=== PATIENT | male | born 2000 | race Caucasian/White ===

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

== ENCOUNTER 2022-05-09 17:07 | Emergency (ER) | payer OTHER, MEDICAID, SELFPAY ==
[2022-05-09 17:19] VITALS: BP 135/75; PULSE 107; RESP 20; TEMP 38.5; O2SAT 98; BMI 22.4
[2022-05-09] MEDS: IBUPROFEN 400 MG TABLET PO (17:34)
[2022-05-09] MEDS: ACETAMINOPHEN 325 MG TABLET 650 MG PO (17:35)
[2022-05-09 18:30] LABS: Influenza A - CEPHEID Flu A POSITIVE (NEGATIVE); Influenza B - CEPHEID Flu B NEGATIVE (NEGATIVE); Respiratory Syncytial Virus Negative (Negative)
[2022-05-09 18:32] LABS: COVID-19 CEPHEID 4-PLEX PCR Negative (Negative)
--- NOTE | 2022-05-09 18:52 | ED.URI ---
HPI - URI/Sore Throat <WILL Saez - Last Filed: 05/09/22 18:56> General Chief Complaint: Upper Respiratory Symptoms Stated Complaint: Thinks pneumonia Time Seen by Provider: 05/09/22 18:42 Source: patient Mode of arrival: Ambulatory History of Present Illness HPI Narrative: Using 21 male emergency department with 3 days of cough, cold, congestion, fevers and states that he has a history of asthma. He ran out of his albuterol inhaler, denies nausea, vomiting or diarrhea. Complains of shortness of breath, has been taking medicine which has been mildly helpful, received Tylenol and ibuprofen when he checked in and is feeling better already. Related Data Home Medications Medication Instructions Recorded Confirmed fluticasone propionate 110 1 puff INH BIDRT ##0 12/27/10 mcg/actuation HFA aerosol inhaler (Flovent HFA) albuterol sulfate 90 mcg/actuation 2 puff INH Q4HP ##0 08/05/12 aerosol inhaler (Ventolin HFA) loratadine 10 mg capsule (Claritin ##0 08/06/17 Liqui-Gel) Previous Rx's Medication Instructions Recorded azithromycin 250 mg tablet 0 tab PO QDAY #6 tabs 08/06/17 (Zithromax Z-Lazaro) albuterol sulfate 90 mcg/actuation 1 puff inhalation QID PRN 05/09/22 aerosol inhaler shortness of breath or wheezing #8.5 grams cetirizine 10 mg tablet 10 mg PO BEDTIME #30 tabs 05/09/22 prednisone 20 mg tablet 20 mg PO DAILY 3 days #3 tabs 05/09/22 Allergies Allergy/AdvReac Type Severity Reaction Status Date / Time No Known Drug Allergies Allergy Verified 10/18/21 11:00 Review of Systems <WILL Saez - Last Filed: 05/09/22 18:56> Review of Systems Narrative: Short ros ROS Unobtainable: All systems reviewed & are unremarkable except as noted in HPI and below Patient History <WILL Saez - Last Filed: 05/09/22 18:56> Medical History Healthy child Social History Smoking Status: Current every day smoker Smoking Status: Current every day smoker tobacco type: cigarettes alcohol intake frequency: holidays/special occasions only Substance Use Type: marijuana Exam <WILL Saez - Last Filed: 05/09/22 18:56> Narrative Exam Narrative: Reviewed vitals signs and nursing notes. General: cooperative, comfortable, in no acute distress, well groomed HEENT: symmetrical facial expressions, moist mucous membranes Cardiovascular: regular rate and rhythm, no peripheral edema, warm extremities Respiratory: normal effort, mild wheezes especially on right, without tachypnea, hypoxia, increased work of breathing but patient expresses short of breath, able to speak in complete sentences, without stridor, or abnormal breath sounds. No retractions or tachypnea. GI: abdomen soft, nontender to palpation, nondistended, without masses, rebound tenderness or exquisite tenderness with exam. MSK: moves all extremities, neurovascularly intact, no weakness, normal tone Skin: brisk capillary refill, without pallor or erythema Neuro: normal speech and cognition, A&O x3, ambulatory, clear speech Psych: mental status is grossly normal, congruent mood, normal affect, pleasant and cooperative Initial Vital Signs Initial Vital Signs: Vital Signs Temperature 101.3 F H 05/09/22 17:19 Pulse Rate 107 H 05/09/22 17:19 Respiratory Rate 20 05/09/22 17:19 Blood Pressure 135/75 05/09/22 17:19 Pulse Oximetry 98 05/09/22 17:19 Oxygen Delivery Method 05/09/22 17:19 <Dannielle Ma DO - Last Filed: 05/10/22 12:56> Initial Vital Signs Initial Vital Signs: Vital Signs Temperature 101.3 F H 05/09/22 17:19 Pulse Rate 107 H 05/09/22 17:19 Respiratory Rate 20 05/09/22 17:19 Blood Pressure 135/75 05/09/22 17:19 Pulse Oximetry 98 05/09/22 17:19 Oxygen Delivery Method 05/09/22 17:19 Course <WILL Saez - Last Filed: 05/09/22 18:56> Orders Ordered: Discontinued Medications Acetaminophen (Acetaminophen 325 Mg Tablet) 650 mg PO NOW ONE Stop: 05/09/22 17:27 Last Admin: 12/04/22 17:35 Dose: 650 mg Documented By: BT Ibuprofen (Ibuprofen 400 Mg Tablet) 400 mg PO NOW ONE Stop: 05/09/22 17:25 Last Admin: 05/09/22 17:34 Dose: 400 mg Documented By: BT Vital Signs Vital signs: Vital Signs - 8 hr 05/09/22 17:19 Temperature 101.3 F H Pulse Rate 107 H Respiratory Rate 20 Blood Pressure 135/75 Pulse Oximetry 98 Oxygen Delivery Method Room Air <Dannielle Ma DO - Last Filed: 05/10/22 12:56> Orders Ordered: Discontinued Medications Acetaminophen (Acetaminophen 325 Mg Tablet) 650 mg PO NOW ONE Stop: 05/09/22 17:27 Last Admin: 05/09/22 17:35 Dose: 650 mg Documented By: BT Ibuprofen (Ibuprofen 400 Mg Tablet) 400 mg PO NOW ONE Stop: 05/09/22 17:25 Last Admin: 05/09/22 17:34 Dose: 400 mg Documented By: BT Vital Signs Vital signs: Vital Signs - 8 hr 05/09/22 17:19 Temperature 101.3 F H Pulse Rate 107 H Respiratory Rate 20 Blood Pressure 135/75 Pulse Oximetry 98 Oxygen Delivery Method Room Air MDM - URI/Sore Throat <WILL Saez - Last Filed: 05/09/22 18:56> Lab Data Labs: Lab Results 05/09/22 Range/Units 17:32 SARS-CoV-2 (PCR) Negative (Negative) Influenza A (RT-PCR) Flu a positive H (NEGATIVE) Influenza B (RT-PCR) Flu b negative (NEGATIVE) RSV (PCR) Negative (Negative) MDM Narrative Medical decision making narrative: This is a 21-year-old male presents emergency department with 3 days of congestion, cough, fevers with history of asthma. Patient had mild expiratory wheezes greater on right than left, without tachypnea, hypoxia, and initially he was febrile but this came down prior to his departure. He has history of pneumonia in the past. He ran out of his albuterol inhaler. Patient was prescribed 3 days of prednisone, given a refill of his albuterol inhaler with refills, prescribed Zyrtec and encouraged to continue taking fluticasone morning and night to help with his symptoms. Patient is p.o. tolerant and has been staying hydrated. Patient's respiratory panel tested positive for influenza A. Recommend that he return emergency department for any worsening of his symptoms. Other possible diagnosis' considered include; viral URI, influenza, pneumonia, pharyngitis, acute bronchitis, allergic rhinitis, pertussis, sinusitis, appendicitis, dehydration. Rest, drink plenty of fluids, NSAIDS for muscle aches and pains. Return to ED for worsening symptoms such as SOB, chest pain, inability to take adequate oral fluids, fever, or productive cough. <Dannielle Ma, DO - Last Filed: 05/10/22 12:56> Lab Data Labs: Lab Results 05/09/22 Range/Units 17:32 SARS-CoV-2 (PCR) Negative (Negative) Influenza A (RT-PCR) Flu a positive H (NEGATIVE) Influenza B (RT-PCR) Flu b negative (NEGATIVE) RSV (PCR) Negative (Negative) Discharge Plan Departure Patient Disposition: Home Clinical Impression: Influenza A, History of asthma Instructions: Influenza Activity Restrictions/Additional Instructions: *You have been diagnosed with influenza a. I have refilled your albuterol inhaler and given you to refills, I gave a 3 days of prednisone as a steroid, please start taking Zyrtec 20 mg at night until your congestion improves and then you can decrease to 10 mg for as long as you still have symptoms. Use Flonase morning and night, stay hydrated, take ibuprofen and Tylenol in conjunction every 6 hours to help treat fever. I hope you feel better soon, thank you for your patience today. *What to do: *Please continue to take your regular medications as directed. [ x] New medication prescriptions sent to your pharmacy: [ [facility]] [ ] New medication written as a paper prescription [ ] No new medications given *Please follow up with your primary care provider in 2-3 days, call for an appointment. Let them know you were seen in the Emergency Department and that we asked that you be seen for follow-up. We will electronically transmit a record of today's note if your PCP is in our system *If you do not have a primary care provider please contact [phone] to establish care with one of the [facility] primary care providers. *Return to Emergency Department if you should have any new, worsening, or concerning symptoms, such as [fever greater than 101F, chills, worsening pain, persistent vomiting or other bothersome symptoms]. Prescriptions: New cetirizine 10 mg tablet 10 mg PO BEDTIME Qty: 30 0RF albuterol sulfate 90 mcg/actuation HFA aerosol inhaler 1 puff inhalation QID PRN (Reason: shortness of breath or wheezing) Qty: 8.5 2RF prednisone 20 mg tablet 20 mg PO DAILY 3 Days Qty: 3 0RF No Action fluticasone propionate [Flovent HFA] 12 GM HFA aerosol inhaler 1 puff INH BIDRT Qty: 0 albuterol sulfate [Ventolin HFA] 90 MCG/PUFF HFA aerosol inhaler 2 puff INH Q4HP Qty: 0 loratadine [Claritin Liqui-Gel] 10 MG capsule Qty: 0 azithromycin [Zithromax Z-Lazaro] 250 MG tablet 0 tab PO QDAY Qty: 6 0RF Referrals: Anderson Guerra MD [Primary Care Provider] - Visit Report Forms: Patient Portal/API <Dannielle Ma DO - Last Filed: 05/10/22 12:56> Cosign ED Attending Vietature Attestation: I was immediately available in the department for consultation. Documentation has been reviewed.
== END 2022-05-09 19:43 | disposition home or self-care (01) ==
PROVIDERS: Emergency Medicine; Emergency Provider Nurse Practitioner Critical Care Medicine; Family Provider Pediatrics; PCP Pediatrics
DX: J10.1 Influenza due to other identified influenza virus with other respiratory manifestations (principal); R50.9 Fever, unspecified; Z87.09 Personal history of other diseases of the respiratory system
CPT/HCPCS: 0241U; 99282; 99283

== ENCOUNTER 2023-05-20 21:20 | Emergency (ER) | payer OTHER, MEDICAID, SELFPAY ==
[2023-05-20 21:42] VITALS: BP 148/69; PULSE 79; RESP 16; TEMP 37.7; O2SAT 98; BMI 38.0
--- NOTE | 2023-05-20 22:51 | PC.NURSE ---
smashed left thumb, wants it drained. Left thumb has small 3mm subungual hematoma. Finger is pink and without swelling.
--- NOTE | 2023-05-20 23:23 | ED_ITS ---
HPI - Extremity Injury (Upper) General Chief Complaint: Extremity Injury, Upper Stated Complaint: smashed L thumb 2hr wants it drained Time Seen by Provider: 05/20/23 21:24 Source: patient Mode of arrival: Ambulatory History of Present Illness HPI narrative: Patient presents with thumb pain. He accidentally smashed his left thumb 2 hours ago and has a small hematoma under his left thumbnail. He is here today requesting that the blood be drained from his nail. Related Data Home Medications Medication Instructions Recorded Confirmed fluticasone propionate 110 1 puff INH BIDRT ##0 12/27/10 mcg/actuation HFA aerosol inhaler (Flovent HFA) albuterol sulfate 90 mcg/actuation 2 puff INH Q4HP ##0 08/05/12 aerosol inhaler (Ventolin HFA) loratadine 10 mg capsule (Claritin ##0 08/06/17 Liqui-Gel) Previous Rx's Medication Instructions Recorded azithromycin 250 mg tablet 0 tab PO QDAY #6 tabs 08/06/17 (Zithromax Z-Lazaro) albuterol sulfate 90 mcg/actuation 1 puff inhalation QID PRN 05/09/22 aerosol inhaler shortness of breath or wheezing #8.5 grams cetirizine 10 mg tablet 10 mg PO BEDTIME #30 tabs 05/09/22 Allergies Allergy/AdvReac Type Severity Reaction Status Date / Time No Known Drug Allergies Allergy Verified 10/18/21 11:00 Review of Systems Review of Systems Narrative: Negative except as noted above Patient History Medical History (Updated 05/20/23 @ 23:24 by Dannielle Sanchez MD) Healthy child Social History Smoking Status: Current every day smoker Smoking Status: Current every day smoker tobacco type: cigarettes alcohol intake frequency: holidays/special occasions only Substance Use Type: marijuana Exam Initial Vital Signs Initial Vital Signs: Vital Signs Temperature 99.9 F H 05/20/23 21:42 Pulse Rate 79 05/20/23 21:42 Respiratory Rate 16 05/20/23 21:42 Blood Pressure 148/69 H 05/20/23 21:42 Pulse Oximetry 98 05/20/23 21:42 Oxygen Delivery Method Room Air 05/20/23 21:42 General: Awake, alert, no acute distress, nontoxic in appearance MSK: Small subungual hematoma under left nail. No deformity to finger Procedures Nail Trephination Location (finger): left and thumb Sterile prep: other (alcohol prep) Method of drainage: nail cautery Procedure successful: Yes Patient tolerated procedure: well and no complications Course Course Course Narrative: Subungual hematoma. Trephinated. Improvement in pain after trephination. Wound care instructions discussed with patient at bedside. Vital Signs Vital signs: Vital Signs - 8 hr 05/20/23 21:42 Temperature 99.9 F H Pulse Rate 79 Respiratory Rate 16 Blood Pressure 148/69 H Pulse Oximetry 98 Oxygen Delivery Method Room Air Discharge Plan Departure Patient Disposition: Home Clinical Impression: Subungual hematoma Instructions: DI for Subungual Hematoma Prescriptions: No Action fluticasone propionate [Flovent HFA] 12 GM HFA aerosol inhaler 1 puff INH BIDRT Qty: 0 albuterol sulfate [Ventolin HFA] 90 MCG/PUFF HFA aerosol inhaler 2 puff INH Q4HP Qty: 0 loratadine [Claritin Liqui-Gel] 10 MG capsule Qty: 0 azithromycin [Zithromax Z-Lazaro] 250 MG tablet 0 tab PO QDAY Qty: 6 0RF cetirizine 10 mg tablet 10 mg PO BEDTIME Qty: 30 0RF albuterol sulfate 90 mcg/actuation HFA aerosol inhaler 1 puff inhalation QID PRN (Reason: shortness of breath or wheezing) Qty: 8.5 2RF Referrals: Anderson Guerra MD [Primary Care Provider] - Stand Alone Forms: Patient Portal/API
== END 2023-05-20 23:32 | disposition home or self-care (01) ==
PROVIDERS: Emergency Provider Emergency Medicine; Family Provider Pediatrics; PCP Pediatrics
DX: S60.112A Contusion of left thumb with damage to nail, initial encounter (principal); W23.0XXA Caught, crushed, jammed, or pinched between moving objects, initial encounter
CPT/HCPCS: 11740; 99281; 99282

== ENCOUNTER 2023-10-17 15:49 | Emergency (ER) | payer OTHER, MEDICAID, SELFPAY ==
[2023-10-17 16:15] VITALS: BP 114/72; PULSE 101; RESP 17; TEMP 37.1; O2SAT 97; BMI 25.0
--- NOTE | 2023-10-17 17:27 | DI.RAD.S_ITS ---
PROCEDURE: XR KNEE LT 3V INDICATIONS: knee laceration from chainsaw TECHNIQUE: 3 views of the knee were acquired. COMPARISON: None. FINDINGS: Bones: No fractures or dislocations. No suspicious bony lesions. Soft tissues: No joint effusion. No suspicious soft tissue calcifications. IMPRESSION: No acute osseous abnormality. Dictated by: Yash Alvarado M.D. on 10/17/2023 at 18:23 Approved by: Yash Alvarado M.D. on 10/17/2023 at 18:23
[2023-10-17] MEDS: TET,DIPH,PERTUSS(ACELL),VAC/PF 0.5 ML SYRINGE IM (17:56)
[2023-10-17] MEDS: LIDOCAINE 1% (PF) 5 ML INJ (17:56)
--- NOTE | 2023-10-18 12:08 | ED.WOUNDLAC ---
HPI - Wound/Laceration <Neel Stewart PA-C - Last Filed: 10/18/23 12:15> General Chief Complaint: Wound/Laceration Stated Complaint: Chainsaw to left lower leg Time Seen by Provider: 10/17/23 17:09 Source: patient Mode of arrival: Family Vehicle History of Present Illness HPI narrative: 23-year-old male presents to the ED status post a left knee injury sustained just prior to arrival. Patient was chopping down a tree, when his chain saw slipped and nicked his left knee. Patient applied pressure to stop the bleeding, presented to the ED for further evaluation. Patient denies numbness, tingling, weakness. Patient is still able to bear weight and walk. Last tetanus is unknown. Patient is not on blood thinners. Related Data Home Medications Medication Instructions Recorded Confirmed fluticasone propionate 110 1 puff INH BIDRT ##0 12/27/10 mcg/actuation HFA aerosol inhaler (Flovent HFA) albuterol sulfate 90 mcg/actuation 2 puff INH Q4HP ##0 08/05/12 aerosol inhaler (Ventolin HFA) loratadine 10 mg capsule (Claritin ##0 08/06/17 Liqui-Gel) Previous Rx's Medication Instructions Recorded azithromycin 250 mg tablet 0 tab PO QDAY #6 tabs 08/06/17 (Zithromax Z-Lazaro) albuterol sulfate 90 mcg/actuation 1 puff inhalation QID PRN 05/09/22 aerosol inhaler shortness of breath or wheezing #8.5 grams cetirizine 10 mg tablet 10 mg PO BEDTIME #30 tabs 05/09/22 Allergies Allergy/AdvReac Type Severity Reaction Status Date / Time No Known Drug Allergies Allergy Verified 10/17/23 16:19 Review of Systems <Neel Stewart PA-C - Last Filed: 10/18/23 12:15> Constitutional Constitutional: Denies chills, Denies fatigue, Denies fever(s), Denies frequent falls, Denies lethargy and Denies weakness Eyes Eyes: Denies change in vision, Denies eye discharge, Denies irritation and Denies loss of vision ENT Ears, Nose, Mouth, and Throat: Denies change in voice, Denies dizziness, Denies neck pain, Denies sore throat and Denies throat swelling Cardiovascular Cardiovascular: Denies chest pain, Denies irregular heart rhythm, Denies lightheadedness, Denies palpitations, Denies dyspnea, Denies dyspnea on exertion and Denies orthopnea Respiratory Respiratory: Denies cough, Denies dyspnea, Denies dyspnea on exertion and Denies wheezing Gastrointestinal Gastrointestinal: Denies abdominal pain, Denies change in bowel habits, Denies diarrhea, Denies nausea and Denies vomiting Musculoskeletal Musculoskeletal: Denies neck pain and Denies numbness Integumentary/Breasts Skin/Breast: Denies pruritus, Denies erythema, Denies rash and Reports wounds Neurologic Neurologic: Denies behavioral changes, Denies confusion, Denies dizziness, Denies frequent falls, Denies loss of vision, Denies numbness and Denies weakness Psychiatric Psychiatric: Denies anxiety, Denies behavioral changes, Denies confusion, Denies depression, Denies homicidal ideation and Denies suicidal ideation Endocrine Endocrine: Denies fatigue, Denies flushing and Denies palpitations Hematologic/Lymphatic Hematologic/Lymphatic: Denies easy bruising Allergic/Immunologic Allergic/Immunologic: Denies urticaria, Denies throat swelling and Denies wheezing Patient History <Neel Stewart PA-C - Last Filed: 10/18/23 12:15> Medical History Healthy child Social History Smoking Status: Current every day smoker Smoking Status: Current every day smoker tobacco type: cigarettes alcohol intake frequency: holidays/special occasions only Substance Use Type: marijuana Exam <Neel Stewart PA-C - Last Filed: 10/18/23 12:15> Narrative Exam Narrative: Const General:?cooperative, healthy appearing and comfortable [facility] Head:?normal to inspection Ears:?hearing grossly normal bilaterally Nose:?external nose normal Face and sinus:?normal facial exam and sinuses nontender Mouth:?oral mucosae normal Throat:?posterior oropharynx normal Eyes General:?appearance normal, both eyes and all related structures Neck Neck:?normal visual inspection and no lymphadenopathy noted Resp Effort & Inspection:?normal respiratory effort Auscultation:?clear to auscultation bilaterally Cardio Rate:?regular rate Rhythm:?regular rhythm Musculoskeletal There is a 2 cm linear laceration over the left patella. There is also a small 0.5 cm laceration adjacent to it. No deeper structures visualized on exam. Bleeding is controlled with pressure. Full range of motion. Strength and sensation is intact. Patient is neurovascularly intact. Neuro General:?patient alert, patient awake and patient oriented x3 Initial Vital Signs Initial Vital Signs: Vital Signs Temperature 98.7 F 10/17/23 16:15 Pulse Rate 101 H 10/17/23 16:15 Respiratory Rate 17 10/17/23 16:15 Blood Pressure 114/72 10/17/23 16:15 Pulse Oximetry 97 10/17/23 16:15 Oxygen Delivery Method Room Air 10/17/23 16:15 <Santiago Carter DO - Last Filed: 10/18/23 12:25> Initial Vital Signs Initial Vital Signs: Vital Signs Temperature 98.7 F 10/17/23 16:15 Pulse Rate 101 H 10/17/23 16:15 Respiratory Rate 17 10/17/23 16:15 Blood Pressure 114/72 10/17/23 16:15 Pulse Oximetry 97 10/17/23 16:15 Oxygen Delivery Method Room Air 10/17/23 16:15 Procedures <BREANNE Glass Last Filed: 10/18/23 12:15> Laceration Repair Laceration 1: Site: lower extremity Side (If applicable): left Size (cm): 2 Description: linear Depth: simple, single layer Local Anesthetic: lidocaine 1% Amount of anesthesia used (mL): 2 Pre-repair: wound explored, irrigated extensively and deep structures intact Skin layer closed with: nylon Skin layer suture size: 4-0 Number of sutures: 4 Technique: simple, interrupted Laceration 2: Site: lower extremity Side (If applicable): left Size (cm): 0.5 Description: linear Depth: simple, single layer Local Anesthetic: lidocaine 1% Pre-repair: wound explored, irrigated extensively and deep structures intact Skin layer closed with: nylon Skin layer suture size: 4-0 Number of sutures: 1 Course <BREANNE Glass Last Filed: 10/18/23 12:15> Orders Ordered: Discontinued Medications Diphtheria/Tetanus/Acell Pertussis (Tet,Diph,Pertuss(Acell),Vac/Pf 0.5 Ml Syringe) 0.5 ml IM .ONCE ONE Stop: 10/17/23 17:28 Last Admin: 10/17/23 17:56 Dose: 0.5 ml Documented By: RB Lidocaine HCl (Lidocaine 1% (Pf) 5 Ml) 5 ml INJ NOW ONE Stop: 10/17/23 17:52 Last Admin: 10/17/23 17:56 Dose: 5 ml Documented By: RB <Santiago Carter DO - Last Filed: 10/18/23 12:25> Orders Ordered: Discontinued Medications Diphtheria/Tetanus/Acell Pertussis (Tet,Diph,Pertuss(Acell),Vac/Pf 0.5 Ml Syringe) 0.5 ml IM .ONCE ONE Stop: 10/17/23 17:28 Last Admin: 10/17/23 17:56 Dose: 0.5 ml Documented By: RB Lidocaine HCl (Lidocaine 1% (Pf) 5 Ml) 5 ml INJ NOW ONE Stop: 10/17/23 17:52 Last Admin: 10/17/23 17:56 Dose: 5 ml Documented By: RB MDM - Wound/Laceration <Neel Stewart PA-C - Last Filed: 10/18/23 12:15> MDM Narrative Medical decision making narrative: 23-year-old male presents to the ED status post a left knee injury sustained just prior to arrival. Concern for fracture versus laceration versus other. Obtained x-ray to rule out the fracture. X-ray without acute findings. Laceration was repaired with 5 sutures. Wound care, signs of infection, suture removal discussed with patient. Tetanus was updated. ED return precautions discussed with patient. Patient verbalized understanding. Medical records reviewed: Yes Discharge Plan Departure Patient Disposition: Home Clinical Impression: Laceration Instructions: DI for Laceration Repair Activity Restrictions/Additional Instructions: You were evaluated in the ED today for a knee injury. Your x-ray did not show any fractures or dislocations. Your lacerations were repaired with 5 sutures. The sutures will need to be removed in 10-14 days. You may return to the ED or go to a walk-in clinic, urgent care or your PCP's office for suture removal. Please watch for signs of infection including worsening pain, redness, swelling, heat, discharge. Please keep the wound clean and dry for the 1st 24 hours after which you may wash gently with soap and water. Please ensure that the wound is completely dry before dressing it back up. Your tetanus was updated today and is good for the next 10 years. You may take Tylenol or ibuprofen for pain. Return to the ED if you worsening symptoms or note any signs of infection. Prescriptions: No Action fluticasone propionate [Flovent HFA] 12 GM HFA aerosol inhaler 1 puff INH BIDRT Qty: 0 albuterol sulfate [Ventolin HFA] 90 MCG/PUFF HFA aerosol inhaler 2 puff INH Q4HP Qty: 0 loratadine [Claritin Liqui-Gel] 10 MG capsule Qty: 0 azithromycin [Zithromax Z-Lazaro] 250 MG tablet 0 tab PO QDAY Qty: 6 0RF cetirizine 10 mg tablet 10 mg PO BEDTIME Qty: 30 0RF albuterol sulfate 90 mcg/actuation HFA aerosol inhaler 1 puff inhalation QID PRN (Reason: shortness of breath or wheezing) Qty: 8.5 2RF Referrals: Anderson Guerra MD [Primary Care Provider] - Stand Alone Forms: Patient Portal/API, Work Release Note ED Sign-out <Santiago Carter, DO - Last Filed: 10/18/23 12:25> Cosign ED Attending Cosignature Attestation: Dr Carter Co-Sign Statement: I was available for consultation during this patient's emergency department visit. This chart is signed by myself for administrative purposes only. I did not have direct contact with this patient during this visit. They were seen independently by the APC.
== END 2023-10-17 19:05 | disposition home or self-care (01) ==
PROVIDERS: Emergency Provider Student in an Organized Health Care Education/Training Program; Family Provider Pediatrics; PCP Pediatrics
DX: S81.012A Laceration without foreign body, left knee, initial encounter (principal); W29.3XXA Contact with powered garden and outdoor hand tools and machinery, initial encounter; Z23 Encounter for immunization
CPT/HCPCS: 12001; 73562; 90471; 99283; 99284; 90715

== ENCOUNTER 2023-10-25 14:05 | Emergency (ER) | payer OTHER, MEDICAID, SELFPAY ==
[2023-10-25 14:07] VITALS: BP 138/95; PULSE 85; TEMP 36.1; O2SAT 99; BMI 25.0
--- NOTE | 2023-10-25 14:50 | ED.RECABL ---
HPI - Recheck/Abnormal Lab/Rx <Neel Stewart PA-C - Last Filed: 10/25/23 14:54> General Chief Complaint: Recheck/Abnormal Lab/Rx Stated Complaint: stitches removed/work note Time Seen by Provider: 10/25/23 14:15 History of Present Illness HPI narrative: 23-year-old male presents to the ED for suture removal. Patient had sutures put in on his left knee on 10/18/2023. Reports that his wound has been healing well with no complications. Patient also requests a work note to indicate that he is cleared to go back to work without any restrictions. Related Data Home Medications Medication Instructions Recorded Confirmed fluticasone propionate 110 1 puff INH BIDRT ##0 12/27/ mcg/actuation HFA aerosol inhaler (Flovent HFA) albuterol sulfate 90 mcg/actuation 2 puff INH Q4HP ##0 08/05/12 aerosol inhaler (Ventolin HFA) loratadine 10 mg capsule (Claritin ##0 08/06/17 Liqui-Gel) Previous Rx's Medication Instructions Recorded azithromycin 250 mg tablet 0 tab PO QDAY #6 tabs 08/06/17 (Zithromax Z-Lazaro) albuterol sulfate 90 mcg/actuation 1 puff inhalation QID PRN 05/09/22 aerosol inhaler shortness of breath or wheezing #8.5 grams cetirizine 10 mg tablet 10 mg PO BEDTIME #30 tabs 05/09/22 Allergies Allergy/AdvReac Type Severity Reaction Status Date / Time No Known Drug Allergies Allergy Verified 10/17/23 16:19 Review of Systems <Neel Stewart PA-C - Last Filed: 10/25/23 14:54> Review of Systems Narrative: Suture removal for knee wound. ROS per HPI Patient History <Neel Stewart PA-C - Last Filed: 10/25/23 14:54> Medical History Healthy child Social History Smoking Status: Current every day smoker Smoking Status: Current every day smoker tobacco type: cigarettes alcohol intake frequency: holidays/special occasions only Substance Use Type: marijuana Exam <Neel Stewart PA-C - Last Filed: 10/25/23 14:54> Narrative Exam Narrative: Const General:?cooperative, healthy appearing and comfortable Resp Effort & Inspection:?normal respiratory effort Auscultation:?clear to auscultation bilaterally Cardio Rate:?regular rate Rhythm:?regular rhythm Integumentary Left knee wounds have healed well, all 5 sutures intact. No signs of infection. Skin is well approximated. Neuro General:?patient alert, patient awake and patient oriented x3 Initial Vital Signs Initial Vital Signs: Vital Signs Temperature 97.0 F L 10/25/23 14:07 Pulse Rate 85 10/25/23 14:07 Blood Pressure 138/95 H 10/25/23 14:07 Pulse Oximetry 99 10/25/23 14:07 Oxygen Delivery Method Room Air 10/25/23 14:07 <Mai Dasilva MD - Last Filed: 10/25/23 16:12> Initial Vital Signs Initial Vital Signs: Vital Signs Temperature 97.0 F L 10/25/23 14:07 Pulse Rate 85 10/25/23 14:07 Blood Pressure 138/95 H 10/25/23 14:07 Pulse Oximetry 99 10/25/23 14:07 Oxygen Delivery Method Room Air 10/25/23 14:07 Course <Neel Stewart PA-C - Last Filed: 10/25/23 14:54> Vital Signs Vital signs: Vital Signs - 8 hr 10/25/23 14:07 Temperature 97.0 F L Pulse Rate 85 Blood Pressure 138/95 H Pulse Oximetry 99 Oxygen Delivery Method Room Air <Mai Dasilva MD - Last Filed: 10/25/23 16:12> Vital Signs Vital signs: Vital Signs - 8 hr 10/25/23 14:07 Temperature 97.0 F L Pulse Rate 85 Blood Pressure 138/95 H Pulse Oximetry 99 Oxygen Delivery Method Room Air MDM - Recheck/Abnormal Lab/Rx <Neel Stewart PA-C - Last Filed: 10/25/23 14:54> [facility] Narrative Medical decision making narrative: 23-year-old male presents to the ED for suture removal. The wounds appear to have healed well. All 5 sutures that were put in are intact. No signs of infection. Skin is well approximated. Sutures were removed with no complications. Work note was given to patient clearing him for work with no restrictions. Medical records reviewed: Yes Discharge Plan Departure Patient Disposition: Home Clinical Impression: Encounter for removal of sutures Instructions: DI for Suture Removal Activity Restrictions/Additional Instructions: You were seen in the ED today to remove the sutures that were put in last week. Your wounds appears to have healed well and the sutures were removed without complications. It is safe for you to go back to work. Prescriptions: No Action fluticasone propionate [Flovent HFA] 12 GM HFA aerosol inhaler 1 puff INH BIDRT Qty: 0 albuterol sulfate [Ventolin HFA] 90 MCG/PUFF HFA aerosol inhaler 2 puff INH Q4HP Qty: 0 loratadine [Claritin Liqui-Gel] 10 MG capsule Qty: 0 azithromycin [Zithromax Z-Lazaro] 250 MG tablet 0 tab PO QDAY Qty: 6 0RF cetirizine 10 mg tablet 10 mg PO BEDTIME Qty: 30 0RF albuterol sulfate 90 mcg/actuation HFA aerosol inhaler 1 puff inhalation QID PRN (Reason: shortness of breath or wheezing) Qty: 8.5 2RF Stand Alone Forms: Patient Portal/API, Work Release Note ED Sign-out <Mai Dasilva MD - Last Filed: 10/25/23 16:12> Cosign ED Attending Cosignature Attestation: I was immediately available in the department for consultation throughout this patient's visit. Mai Dasilva MD
== END 2023-10-25 14:26 | disposition home or self-care (01) ==
PROVIDERS: Emergency Provider Student in an Organized Health Care Education/Training Program
DX: Z48.02 Encounter for removal of sutures (principal)
CPT/HCPCS: 99281; 99282

== ENCOUNTER 2023-12-31 16:37 | Emergency (ER) | payer OTHER, SELFPAY ==
[2023-12-31 16:41] VITALS: BP 141/85; PULSE 78; RESP 16; TEMP 37; O2SAT 99; BMI 21.7
--- NOTE | 2023-12-31 17:08 | ED_ITS ---
HPI - Trauma General Chief Complaint: Dental/Oral Stated Complaint: Fall, facial injury Time Seen by Provider: 12/31/23 16:51 Source: patient Mode of arrival: Ambulatory Limitations: no limitations History of Present Illness HPI narrative: 23-year-old male with no reported medical issues who presents with complaint of facial injury. 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 Patient states the refrigerator did not land on him at any point. He states he was hit in the mouth his upper and lower lips both have abrasions and he states his upper tooth was struck and was misaligned. He did push it in a little bit straighter but states it is still fits slightly lower than before. He states he did have an internal retainer which is still present. Patient states no laid daily medications, no anticoagulants. Denies any major surgeries. No known drug allergies. Does use tobacco. Patient plans to follow up with dentist on Tuesday. Patient's tetanus was updated in the last year. Related Data Home Medications Medication Instructions Recorded Confirmed fluticasone propionate 110 1 puff INH BIDRT ##0 12/27/10 mcg/actuation HFA aerosol inhaler (Flovent HFA) albuterol sulfate 90 mcg/actuation 2 puff INH Q4HP ##0 08/05/12 aerosol inhaler (Ventolin HFA) loratadine 10 mg capsule (Claritin ##0 08/06/17 Liqui-Gel) Previous Rx's Medication Instructions Recorded azithromycin 250 mg tablet 0 tab PO QDAY #6 tabs 08/06/17 (Zithromax Z-Lazaro) albuterol sulfate 90 mcg/actuation 1 puff inhalation QID PRN 05/09/22 aerosol inhaler shortness of breath or wheezing #8.5 grams cetirizine 10 mg tablet 10 mg PO BEDTIME #30 tabs 05/09/22 Allergies Allergy/AdvReac Type Severity Reaction Status Date / Time No Known Drug Allergies Allergy Verified 12/31/23 16:41 Review of Systems Review of Systems ROS Unobtainable: All systems reviewed & are unremarkable except as noted in HPI and below Patient History Medical History (Updated 12/31/23 @ 17:36 by Dannielle Ma DO) Healthy child Social History Smoking Status: Current every day smoker Smoking Status: Current every day smoker tobacco type: cigarettes alcohol intake frequency: holidays/special occasions only Substance Use Type: marijuana Exam Narrative Exam Narrative: GEN: Patient appears in mild distress. HEAD: No evidence of trauma, no raccoon/Morrison sign. NECK: Nontender, painless range of motion, trachea midline Negative Nexus criteria, no midline line tenderness, distracting injury, altered mental status, neuro deficit, recent EtOH. EYES: PERRLA, EOMI ENT: External inspection normal with the exception of abrasions of the left upper and lower lips, there are no through and through lacerations, vermilion border is not involved, patient's left upper central incisor is about 2 mm lower than the right, does have some wiggle other teeth all appear to be in place without any movement, is in place within the gum, trachea is midline, TM's are normal no hemotypanum, Nares are clear, no septal hematoma, no dental or oral injury, airway is normal and with normal occlusion, No bony tenderness RESP: Chest is nontender and has symmetric movement, no ecchymosis, breath sounds are normal no crackles, wheezes or rales CVS: Heart sounds are normal, no murmur noted, No JVD. ABG/GI: Nontender, soft, normal bowel sounds, no distention, no organomegaly. NEURO: Oriented AOx3, neuro is grossly intact, sensation and motor is normal all 4 extremities moving, cranial nerves II through XII are intact, GCS is 15 PSYCH: Normal mood and affect SKIN: Intact, warm and dry, no crepitus and without decubitus BACK: No CVA tenderness, no vertebral tenderness, no step-off's, no crepitus EXT: Atraumatic, normal range of motion. Patient able to ambulate without issue . Initial Vital Signs Initial Vital Signs: Vital Signs Temperature 98.6 F 12/31/23 16:41 Pulse Rate 78 12/31/23 16:41 Respiratory Rate 16 12/31/23 16:41 Blood Pressure 141/85 H 12/31/23 16:41 Pulse Oximetry 99 12/31/23 16:41 Oxygen Delivery Method Room Air 12/31/23 16:41 Course Vital Signs Vital signs: Vital Signs - 8 hr 12/31/23 16:41 12/31/23 17:41 Temperature 98.6 F Pulse Rate 78 67 Respiratory Rate 16 16 Blood Pressure 141/85 H 144/91 H Pulse Oximetry 99 100 Oxygen Delivery Method Room Air Room Air MDM - Trauma MDM Narrative Medical decision making narrative: 23-year-old male with injury to his face, patient has upper and lower abrasions of his left lip but do not require intervention, does have injury to his left central upper incisor that is loose but in place although about 2 mm lower than the right which patient states is new. Patient does note that it was much more a skew and he straightened it and pushed it upwards. I also gave some upward pressure and was not able to align it further. Discussed with patient tetanus is up-to-date. Soft diet with plan to follow up with Dentistry on Tuesday. If patient can not follow up with his dentist can call [facility] to set up follow up. Patient and I paperwork filled out given to registration. Discharge Plan Departure Patient Disposition: Home Clinical Impression: Loose tooth due to trauma, Abrasion of lip, initial encounter Dental injury Qualifiers: Encounter type: initial encounter Qualified Code(s): S09.93XA - Unspecified injury of face, initial encounter Activity Restrictions/Additional Instructions: Follow up with a dentist, call tomorrow to set up follow-up. Do recommend f ollow up in the next few days. If you are having difficulty finding a dentist to follow up please contact the number on the L and I form. Soft diet only until you see the dentist as your upper left incisor is loose and will likely come out if you need any foods that are sticky or require chewing or biting. You can take Tylenol up to a 1000 mg every 6 hours and/or ibuprofen up to 600 mg every 6 hours as needed for pain. Abrasions on your lip should heal over time you can use ice to the affected area as needed. Please return for severe headaches, persistent bleeding, new swelling of your face or other new or concerning changes. Prescriptions: No Action fluticasone propionate [Flovent HFA] 12 GM HFA aerosol inhaler 1 puff INH BIDRT Qty: 0 albuterol sulfate [Ventolin HFA] 90 MCG/PUFF HFA aerosol inhaler 2 puff INH Q4HP Qty: 0 loratadine [Claritin Liqui-Gel] 10 MG capsule Qty: 0 azithromycin [Zithromax Z-Lazaro] 250 MG tablet 0 tab PO QDAY Qty: 6 0RF cetirizine 10 mg tablet 10 mg PO BEDTIME Qty: 30 0RF albuterol sulfate 90 mcg/actuation HFA aerosol inhaler 1 puff inhalation QID PRN (Reason: shortness of breath or wheezing) Qty: 8.5 2RF Referrals: Miscellaneous,Doctor, MD [Primary Care Provider] - Stand Alone Forms: Patient Portal/API
[2023-12-31 17:41] VITALS: BP 144/91; PULSE 67; RESP 16; O2SAT 100
== END 2023-12-31 17:43 | disposition home or self-care (01) ==
PROVIDERS: Emergency Provider Emergency Medicine
DX: S09.8XXA Other specified injuries of head, initial encounter (principal); K08.89 Other specified disorders of teeth and supporting structures; S00.511A Abrasion of lip, initial encounter; W01.198A Fall on same level from slipping, tripping and stumbling with subsequent striking against other object, initial encounter; Y99.0 Civilian activity done for income or pay
CPT/HCPCS: 99281; 99282